=== PATIENT | female | born 1995 | race Two or more races ===

== ENCOUNTER 2021-02-26 13:25 | Emergency (ER) | payer MEDICAID, OTHER ==
[~2021-02-26] VITALS: Ht 160 cm; Wt 72.6 kg
[2021-02-26 15:58] VITALS: BP 137/84
== END 2021-02-26 16:37 | disposition home or self-care (01) ==
LOC: ER 13:25
DX: S46.912A Strain of unspecified muscle, fascia and tendon at shoulder and upper arm level, left arm, initial encounter (principal); S50.12XA Contusion of left forearm, initial encounter; V43.52XA Car driver injured in collision with other type car in traffic accident, initial encounter; Y93.89 Activity, other specified; Y92.89 Other specified places as the place of occurrence of the external cause; Y99.8 Other external cause status
CPT/HCPCS: 73030; 73090; 81025